=== PATIENT | female | born 1950 | race Caucasian/White ===

== ENCOUNTER 2020-08-11 20:37 | Observation (INO) ==
[2020-08-11 21:07] LABS: Basophils # 0.1 10*3/uL (0.0-0.2); Basophils % 0.5 % (0.0-0.8); Eosinophils # 0.2 10*3/uL (0.0-0.87); Eosinophils % 1.5 % (0.00-10.9); Hematocrit 42.6 VOL% (35.7-47.0); Hemoglobin 13.5 GM/DL (12.0-16.0); Immature Granulocytes % 0.3 %; Immature Granulocytes Absolute 0.03 #; Lymphocytes # 4.2 10*3/uL (1.4-4.0); Lymphocytes % 38.3 % (21.3-54.2); Mean Corpuscular HGB Conc 31.7 GM/DL (32-36); Mean Corpuscular Volume 97.5 FL (87-102); Mean Platelet Volume 9.4 FL (9.6-12.0); Monocytes % 8.5 % (1.7-12.7); Neutrophils % 50.9 % (38.7-73.9); Platelet Count 397 T/CUMM (130-400); Red Blood Count 4.37 MC/CUMM (3.8-5.5)
[2020-08-11 21:22] LABS: PT Patient Result 10.5 SECS (9.8-11.9)
[2020-08-11 21:26] LABS: Albumin 3.6 G/DL (3.4-5.0); Bilirubin,Total 0.5 MG/DL (0.2-1.0); Calcium 8.9 MG/DL (8.5-10.1); Osmolality,Calculated 284.3 MOS/KG (273-304); Potassium 3.4 MMOL/L (3.5-5.1); Total Protein 7.5 G/DL (6.4-8.2)
[2020-08-11 21:28] LABS: Eosinophils 1 % (0-10); Lymphocytes 48 % (20-55); Segmented Neutrophils 44 % (50-85); Total Cells Counted 100
[2020-08-11 21:29] LABS: Platelet Estimate Normal
[2020-08-11] MEDS: LEVOFLOXACIN INJ 750 MG in PREMIX 1 EACH IV SCH (23:32)
[2020-08-12] MEDS ORDERED: MORPHINE 4 MG/1 ML VIAL IV PRN (00:05)
[2020-08-12] MEDS ORDERED: ZALEPLON 5 MG CAPSULE PO PRN (00:05)
[2020-08-12] MEDS ORDERED: hydrALAZINE 20 MG/1 ML VIAL IV PRN (00:05)
[2020-08-12] MEDS ORDERED: diphenhydrAMINE CAP 25 MG CAPSULE PO PRN (00:05)
[2020-08-12] MEDS ORDERED: NICOTINE 21 MG/24 HR PATCH TRANSDERM PRN (00:05)
[2020-08-12] MEDS ORDERED: guaiFENesin/DM ER 600-30 MG TABLET PO PRN (00:05)
[2020-08-12] MEDS ORDERED: SIMETHICONE CHEW 125 MG TABLET PO PRN (00:05)
[2020-08-12] MEDS ORDERED: ACETAMINOPHEN 325 MG TABLET PO PRN (00:05)
[2020-08-12] MEDS ORDERED: ALUMINUM/MAGNES/SIMETH MAX STR 30 ML UDCUP PO PRN (00:05)
[2020-08-12] MEDS ORDERED: DEXTROSE 50% 25 GM/50 ML VIAL IV PRN (00:05)
[2020-08-12] MEDS ORDERED: BISACODYL 5 MG TABLET PO PRN (00:05)
[2020-08-12] MEDS ORDERED: GLUCAGON 1 MG VIAL IM PRN (00:05)
[2020-08-12] MEDS ORDERED: POTASSIUM CHLORIDE 20 MEQ TABLET PO STA (00:06)
[2020-08-12] MEDS: ALBUTEROL/IPRATROPIUM 3 ML NEB RESP TX SCH ×4 (00:20→19:32)
[2020-08-12 05:54] LABS: Basophils % 0.3 % (0.0-0.8); Eosinophils # 0.1 10*3/uL (0.0-0.87); Eosinophils % 1.3 % (0.00-10.9); Hematocrit 41.5 VOL% (35.7-47.0); Hemoglobin 12.7 GM/DL (12.0-16.0); Immature Granulocytes % 0.3 %; Immature Granulocytes Absolute 0.03 #; Lymphocytes % 33.6 % (21.3-54.2); Mean Corpuscular HGB Conc 30.6 GM/DL (32-36); Mean Corpuscular Volume 100.5 FL (87-102); Mean Platelet Volume 9.6 FL (9.6-12.0); Monocytes % 10.7 % (1.7-12.7); Neutrophils % 53.8 % (38.7-73.9); Platelet Count 388 T/CUMM (130-400); Red Blood Count 4.13 MC/CUMM (3.8-5.5); White Blood Count 8.9 T/CUMM (4-12)
[2020-08-12] MEDS ORDERED: PANTOPRAZOLE 40 MG TABLET PO SCH (09:00)
[2020-08-12] MEDS: PANTOPRAZOLE 40 MG VIAL IV SCH (09:20)
[2020-08-12] MEDS: POTASSIUM CHLORIDE 20 MEQ TABLET PO SCH (09:21)
[2020-08-12] MEDS: ASPIRIN 325 MG TABLET PO SCH (09:25)
[2020-08-12] MEDS: METOPROLOL TARTRATE 50 MG TABLET PO SCH ×2 (09:25→20:25)
[2020-08-12] MEDS: amLODIPine 5 MG TABLET PO SCH (09:25)
[2020-08-12] MEDS: ENOXAPARIN 40 MG/0.4 ML SYRINGE SUBCUT SCH (09:26)
[2020-08-12] MEDS: LOSARTAN 25 MG TABLET PO SCH (13:18)
[2020-08-12] MEDS ORDERED: GABAPENTIN 400 MG CAPSULE PO SCH (21:00)
[2020-08-12] MEDS: LEVOFLOXACIN INJ 750 MG in PREMIX 1 EACH IV SCH (23:35)
[2020-08-13] MEDS: ALBUTEROL/IPRATROPIUM 3 ML NEB RESP TX SCH ×3 (02:52→14:17)
[2020-08-13 06:15] LABS: Basophils % 0.5 % (0.0-0.8); Eosinophils # 0.1 10*3/uL (0.0-0.87); Eosinophils % 1.3 % (0.00-10.9); Hematocrit 39.7 VOL% (35.7-47.0); Hemoglobin 12.4 GM/DL (12.0-16.0); Immature Granulocytes % 0.2 %; Immature Granulocytes Absolute 0.02 #; Lymphocytes # 2.4 10*3/uL (1.4-4.0); Lymphocytes % 28.5 % (21.3-54.2); Mean Corpuscular HGB Conc 31.2 GM/DL (32-36); Mean Corpuscular Volume 98.3 FL (87-102); Mean Platelet Volume 9.3 FL (9.6-12.0); Monocytes % 9.9 % (1.7-12.7); Neutrophils % 59.6 % (38.7-73.9); Platelet Count 368 T/CUMM (130-400); Red Blood Count 4.04 MC/CUMM (3.8-5.5); Red Cell Distribution Width 14.2 % (9.3-17.3); White Blood Count 8.3 T/CUMM (4-12)
[2020-08-13 06:29] LABS: Osmolality,Calculated 278.4 MOS/KG (273-304); Potassium 4.3 MMOL/L (3.5-5.1)
[2020-08-13] MEDS: ENOXAPARIN 40 MG/0.4 ML SYRINGE SUBCUT SCH (09:15)
[2020-08-13] MEDS: LOSARTAN 25 MG TABLET PO SCH (09:15)
[2020-08-13] MEDS: POTASSIUM CHLORIDE 20 MEQ TABLET PO SCH (09:15)
[2020-08-13] MEDS: METOPROLOL TARTRATE 50 MG TABLET PO SCH (09:15)
[2020-08-13] MEDS: amLODIPine 5 MG TABLET PO SCH (09:15)
[2020-08-13] MEDS: PANTOPRAZOLE 40 MG VIAL IV SCH (09:16)
[2020-08-13] MEDS: ASPIRIN 325 MG TABLET PO SCH (09:16)
[2020-08-13 09:56] LABS: Troponin I < 0.015 NG/ML (0.00-0.045)
[2020-08-13 11:15] VITALS: BP 114/92
== END 2020-08-13 15:41 | disposition home or self-care (01) ==
LOC: N.ED 20:37 → N.EDINP 20:37 → SUATTDRO 08-12 00:05 → N.EDINP 08-12 01:36 → N.TELEN 08-12 02:11
PROVIDERS: ADMIT Hospitalist; ATTEND Internal Medicine

== ENCOUNTER 2020-09-05 14:58 | Observation (INO) ==
[2020-09-05] MEDS ORDERED: MORPHINE 4 MG/1 ML VIAL IV STA (15:21)
[2020-09-05] MEDS ORDERED: NITROGLYCERIN 2% OINT 1 INCH/GM PACK TOP STA (15:21)
[2020-09-05] MEDS ORDERED: ASPIRIN 325 MG TABLET PO STA (15:21)
[2020-09-05] MEDS ORDERED: ONDANSETRON 4 MG/2 ML VIAL IV STA (15:21)
[2020-09-05 15:25] LABS: Basophils % 0.4 % (0.0-0.8); Eosinophils % 0.4 % (0.00-10.9); Hematocrit 38.7 VOL% (35.7-47.0); Hemoglobin 12.3 GM/DL (12.0-16.0); Immature Granulocytes % 0.4 %; Immature Granulocytes Absolute 0.04 #; Lymphocytes # 2.8 10*3/uL (1.4-4.0); Lymphocytes % 29.2 % (21.3-54.2); Mean Corpuscular HGB Conc 31.8 GM/DL (32-36); Mean Corpuscular Volume 97.2 FL (87-102); Mean Platelet Volume 9.5 FL (9.6-12.0); Monocytes % 5.7 % (1.7-12.7); Neutrophils % 63.9 % (38.7-73.9); Platelet Count 399 T/CUMM (130-400); Red Blood Count 3.98 MC/CUMM (3.8-5.5); Red Cell Distribution Width 14.2 % (9.3-17.3); White Blood Count 9.7 T/CUMM (4-12)
[2020-09-05 15:37] LABS: PT Patient Result 11.3 SECS (10.5-12.0); Partial Thromboplastin Time 27.3 SECS (23.9-33.8)
[2020-09-05 15:45] LABS: Albumin 3.5 G/DL (3.4-5.0); Bilirubin,Total 0.6 MG/DL (0.2-1.0); Osmolality,Calculated 280.3 MOS/KG (273-304); Potassium 3.9 MMOL/L (3.5-5.1); Total Protein 6.7 G/DL (6.4-8.2)
[2020-09-05] MEDS ORDERED: DOCUSATE SODIUM 100 MG CAPSULE PO PRN (17:04)
[2020-09-05] MEDS ORDERED: PROMETHAZINE 25 MG TABLET PO PRN (17:04)
[2020-09-05] MEDS ORDERED: MAGNESIUM SULF RIDER 4 GM/100 ML PREMIX IV PRN (17:04)
[2020-09-05] MEDS ORDERED: guaiFENesin/DM ER 600-30 MG TABLET PO PRN (17:04)
[2020-09-05] MEDS ORDERED: MAGNESIUM SULF RIDER 2 GM/50 ML PREMIX IV PRN (17:04)
[2020-09-05] MEDS ORDERED: hydrALAZINE 20 MG/1 ML VIAL IV PRN (17:04)
[2020-09-05] MEDS ORDERED: ZALEPLON 5 MG CAPSULE PO PRN (17:04)
[2020-09-05] MEDS ORDERED: ALUMINUM/MAGNES/SIMETH MAX STR 30 ML UDCUP PO PRN (17:04)
[2020-09-05] MEDS ORDERED: POTASSIUM CHLORIDE 20 MEQ TABLET PO PRN (17:04)
[2020-09-05] MEDS ORDERED: ACETAMINOPHEN 325 MG TABLET PO PRN (17:04)
[2020-09-05] MEDS ORDERED: diphenhydrAMINE CAP 25 MG CAPSULE PO PRN (17:04)
[2020-09-05] MEDS ORDERED: ONDANSETRON 4 MG/2 ML VIAL IV PRN (17:04)
[2020-09-05] MEDS: METOPROLOL TARTRATE 50 MG TABLET PO SCH (20:36)
[2020-09-05] MEDS: LOSARTAN 25 MG TABLET PO SCH (20:38)
[2020-09-05] MEDS: MAGNESIUM OXIDE 400 MG TABLET PO SCH (20:39)
[2020-09-05] MEDS ORDERED: GABAPENTIN 400 MG CAPSULE PO SCH (21:00)
[2020-09-05] MEDS ORDERED: ROSUVASTATIN 20 MG TABLET PO SCH (21:00)
[2020-09-05] MEDS: NITROGLYCERIN 2% OINT 1 INCH/GM PACK TOP SCH (23:27)
[2020-09-06] MEDS: NITROGLYCERIN 2% OINT 1 INCH/GM PACK TOP SCH ×2 (01:37→05:42)
[2020-09-06] MEDS: SODIUM CHLORIDE 0.9% 1,000 ML IV SCH ×2 (05:42→14:38)
[2020-09-06 06:56] LABS: Basophils # 0.1 10*3/uL (0.0-0.2); Basophils % 0.5 % (0.0-0.8); Eosinophils # 0.1 10*3/uL (0.0-0.87); Eosinophils % 1.2 % (0.00-10.9); Hemoglobin 11.9 GM/DL (12.0-16.0); Immature Granulocytes % 0.4 %; Immature Granulocytes Absolute 0.04 #; Lymphocytes # 2.7 10*3/uL (1.4-4.0); Lymphocytes % 26.8 % (21.3-54.2); Mean Corpuscular HGB Conc 32.2 GM/DL (32-36); Mean Corpuscular Volume 96.9 FL (87-102); Mean Platelet Volume 9.8 FL (9.6-12.0); Monocytes % 10.3 % (1.7-12.7); Neutrophils % 60.8 % (38.7-73.9); Platelet Count 355 T/CUMM (130-400); Red Blood Count 3.82 MC/CUMM (3.8-5.5); Red Cell Distribution Width 14.5 % (9.3-17.3); White Blood Count 10.2 T/CUMM (4-12)
[2020-09-06] MEDS ORDERED: DIAZEPAM 5 MG TABLET PO ONE (07:19)
[2020-09-06] MEDS ORDERED: MAGNESIUM SULF RIDER 2 GM/50 ML PREMIX IV PRN (07:19)
[2020-09-06] MEDS ORDERED: diphenhydrAMINE CAP 50 MG CAPSULE PO ONE (07:19)
[2020-09-06] MEDS ORDERED: POTASSIUM CHLORIDE RIDER 10 MEQ in PREMIX 1 EACH IV PRN (07:19)
[2020-09-06 07:20] LABS: Calcium 8.9 MG/DL (8.5-10.1); Osmolality,Calculated 286.8 MOS/KG (273-304); Potassium 3.9 MMOL/L (3.5-5.1); Risk Ratio 2.85; Thyroid Stimulating Hormone 2.12 uIU/ml (0.358-3.74); VLDL CHOLESTEROL 13.2 MG/DL
[2020-09-06] MEDS: LOSARTAN 25 MG TABLET PO SCH (08:10)
[2020-09-06] MEDS: METOPROLOL TARTRATE 50 MG TABLET PO SCH (08:10)
[2020-09-06] MEDS: MAGNESIUM OXIDE 400 MG TABLET PO SCH (08:10)
[2020-09-06] MEDS ORDERED: LIDOCAINE 1% 20 ML VIAL ONE (08:35)
[2020-09-06] MEDS ORDERED: NITROGLYCERIN DRIP 50 MG/250 ML BOTTLE IV ONE (08:35)
[2020-09-06] MEDS ORDERED: HEPARIN/NACL 0.9% 2 UNITS/ML 2,000 UNIT/1,000 ML BAG IV ONE (08:35)
[2020-09-06] MEDS ORDERED: VERAPAMIL 5 MG/2 ML VIAL ONE (08:36)
[2020-09-06] MEDS ORDERED: MIDAZOLAM 2 MG/2 ML VIAL ONE ×2 (08:42→09:09)
[2020-09-06] MEDS ORDERED: fentaNYL 100 MCG/2 ML VIAL ONE (08:42)
[2020-09-06] MEDS ORDERED: FOLIC ACID 1 MG TABLET PO SCH (09:00)
[2020-09-06] MEDS ORDERED: PANTOPRAZOLE 40 MG TABLET PO SCH ×2 (09:00)
[2020-09-06] MEDS ORDERED: POLYETHYLENE GLYCOL POWDER 17 GM PACK PO SCH (09:00)
[2020-09-06] MEDS ORDERED: POTASSIUM CHLORIDE 10 MEQ TABLET PO SCH (09:00)
[2020-09-06] MEDS ORDERED: ASPIRIN EC 81 MG TABLET PO SCH (09:00)
[2020-09-06] MEDS ORDERED: HEPARIN 5,000 UNIT/1 ML VIAL ONE (09:01)
[2020-09-06] MEDS ORDERED: NITROGLYCERIN SL 0.4 MG TABLET SL PRN (09:32)
[2020-09-06] MEDS ORDERED: ISOSORBIDE MONONITRATE 30 MG TABLET PO SCH (10:00)
[2020-09-06 16:17] VITALS: BP 107/67
[2020-09-06] MEDS ORDERED: METOPROLOL TARTRATE 25 MG TABLET PO SCH (21:00)
== END 2020-09-06 18:16 | disposition home or self-care (01) ==
LOC: N.ED 14:58 → N.EDINP 14:58 → N.TELEN 20:12
PROVIDERS: ADMIT Internal Medicine Cardiovascular Disease; ATTEND Internal Medicine Cardiovascular Disease
PROC: CLCCHCL (ICD-10-PCS; 2020-09-06 08:45)